=== PATIENT | male | born 1980 | race Two or more races ===

== ENCOUNTER 2023-05-23 11:37 | Emergency (ER) | payer MEDICAID ==
[~2023-05-23] VITALS: Ht 180.3 cm; Wt 74.8 kg
[2023-05-23] MEDS ORDERED: KETOROLAC TROMETHAMINE 15 MG/ML VIAL ONE (12:29)
[2023-05-23] MEDS ORDERED: CYCLOBENZAPRINE 10 MG TABLET ONE (12:29)
[2023-05-23] MEDS ORDERED: KETOROLAC TROMETHAMINE INJ 30 MG/ML VIAL IV ONE (12:30)
[2023-05-23] MEDS ORDERED: CYCLOBENZAPRINE 10 MG TABLET PO ONE (12:30)
[2023-05-23 12:32] LABS: BASOPHILS # (AUTO) 0.1 K/uL (0.0-0.2); BASOPHILS % (AUTO) 0.9 % (0.0-2.0); CALCIUM, SERUM 9.4 mg/dL (8.5-10.1); CREATININE 1.1 mg/dL (0.6-1.3); EOSINOPHILS # (AUTO) 0.3 K/uL (0.0-0.7); EOSINOPHILS % (AUTO) 5.2 % (0.0-6.0); HEMATOCRIT 45 % (39-51); HEMOGLOBIN 14.9 g/dL (13.5-17.5); LYMPHOCYTES # (AUTO) 1.7 K/uL (0.8-4.8); LYMPHOCYTES % (AUTO) 31.1 % (20.0-44.0); MEAN CORPUSCULAR HEMOGLOBIN 30 PG (26.0-33.0); MEAN CORPUSCULAR HGB CONC 33 g/dl (31.0-36.0); MEAN CORPUSCULAR VOLUME 91 fL (80-96); MONOCYTES # (AUTO) 0.5 K/uL (0.1-1.30); MONOCYTES % (AUTO) 8.7 % (2.0-12.0); NEUTROPHILS # (AUTO) 2.9 K/uL (1.8-8.9); NEUTROPHILS % (AUTO) 54.1 % (43.0-81.0); PLATELET COUNT (AUTO) 220 K/uL (150-450); POTASSIUM 4.5 mmol/L (3.5-5.1); RED BLOOD CELL COUNT(AUTO) 4.93 MIL/uL (4.5-6.0); WHITE BLOOD COUNT (AUTO) 5.4 K/uL (4.3-11.0)
[2023-05-23 12:39] LABS: BILIRUBIN,DIRECT 0.1 mg/dL (0.0-0.2); BILIRUBIN,TOTAL 0.2 mg/dL (0.2-1.0); TOTAL PROTEIN, SERUM 7.7 g/dL (6.4-8.2)
[2023-05-23] MEDS ORDERED: LIDO30AD10 TP (13:20)
[2023-05-23] MEDS ORDERED: CYCL5TAB PO (13:20)
[2023-05-23 13:26] VITALS: BP 136/88; TEMP 98; O2SAT 100
== END 2023-05-23 13:27 | disposition home or self-care (01) ==
LOC: ER 11:48
DX: G89.29 Other chronic pain (principal); M54.50 Low back pain, unspecified
CPT/HCPCS: 99285; 74176; 96374; 85025; 80048; 83690; 80076; 36415; J1885

== ENCOUNTER 2025-03-17 17:55 | Emergency (ER) | payer BC, MEDICAID ==
[~2025-03-17] VITALS: Ht 180.3 cm; Wt 71.2 kg
[~2025-03-17 17:55] MED LIST: CYCL5TAB PO; LIDO30AD10 TP
[2025-03-17 18:59] LABS: PLATELET COUNT (AUTO) 228 K/uL (150-450); RED BLOOD CELL COUNT(AUTO) 4.60 MIL/uL (4.5-6.0); RED CELL DISTRIBUTION WIDTH 14.3 % (11.5-15.0); WHITE BLOOD COUNT (AUTO) 10.4 K/uL (4.3-11.0)
[2025-03-17 19:06] LABS: CALCIUM, SERUM 9.2 mg/dL (8.5-10.1); CREATININE 1.2 mg/dL (0.6-1.3); SODIUM SERUM 139.0 mmol/L (136-145); UREA NITROGEN, BLOOD 10.0 mg/dL (7-18)
[2025-03-17 19:12] LABS: INR 1.03 (0.91-1.10)
[2025-03-17] MEDS: TRANEXAMIC ACID 1,000 MG/10 ML VIAL IV ONE (19:13)
[2025-03-17] MEDS: OXYMETAZOLINE HCL NASAL SPRAY 30 ML BOTTLE NS ONE (19:14)
[2025-03-17 20:38] VITALS: BP 118/65; TEMP 98; O2SAT 98
== END 2025-03-17 20:39 | disposition home or self-care (01) ==
LOC: ER 18:00
DX: J95.831 Postprocedural hemorrhage of a respiratory system organ or structure following other procedure (principal); Z79.899 Other long term (current) drug therapy
CPT/HCPCS: 36415; 80048-TC; 85025-TC; 85610-TC